=== PATIENT | female | born 1995 | race Caucasian/White ===

== ENCOUNTER 2018-06-01 06:24 | Inpatient (IN) ==
[2018-06-01] MEDS ORDERED: ONDANSETRON HCL/PF 2 MG/ML VIAL IV PRN ×2 (07:36→08:23)
[2018-06-01] MEDS ORDERED: OXYTOCIN/DEXTROSE 5%-WATER 30 UNITS/500 ML BAG IV ONE (07:36)
[2018-06-01] MEDS ORDERED: RINGER'S SOLUTION,LACTATED 1,000 ML IV ONE (07:36)
[2018-06-01] MEDS ORDERED: NALOXONE HCL 1 MG/1 ML SYRG IV PRN (08:23)
[2018-06-01] MEDS ORDERED: BUPIVACAINE HCL/0.9 % NACL/PF 250 ML EP PRN (08:23)
--- NOTE | 2018-06-01 08:26 | ANES ---
Anesthesia Pre Procedure Eval HOME MEDICATIONS Vits96/Iron Fum/Folic [ S] 1 tab PO DAILY #0 tab 04/25/13 [ Last Taken 05/31/18] Ferrous Sulfate 325 mg PO HS 01/26/15 [Last Taken 05/31/18] Allergies/Adverse Reactions: Allergies Allergy/AdvReac Type Severity Reaction Status Date / Time Sulfa (Sulfonamide AdvReac Intermediate Other Verified 06/01/18 07:34 Antibiotics) [Sulfa(Sulfonamide Antibiotics)] - Planned Procedure Planned Procedure: ELECTIVE INDUCTION Medical History (Last Reviewed 06/01/18 @ 08:24 by Jaspal Pemberton CRNA) Anemia affecting Cataracts, bilateral Fibrocystic breast disease History of chlamydia infection Onset Date: ~10/09/12 Surgical History (Last Reviewed 06/01/18 @ 08:24 by Jaspal Pemberton CRNA) No pertinent past surgical history Family History (Last Updated 05/29/18 @ 08:18 by Velma Starks) Father Cardiac anomaly, congenital Mother Alive and well Grandfather Diabetes Grandmother Cancer - Family Anesthesia History Family History:: no untoward family reactions to anesthesia - Airway/Neck/Teeth Within Normal Limits:: Yes Teeth Condition: Intact Mallampatti Score: 2 Thyromental (T-M) distance: > 6 cm Mandibulo Hyoid distance: > 3 cm - Respiratory Respiratory: lungs clear Smoking Status: Never smoker - Cardiovascular Patient History - Cardiac/Respiratory: No pertinent hx Tolerates Activity: Good Heart Sounds: S1 & S2, Regular - Anesthesia Assessment and Plan ASA Class: II, E Anesthesia Type Plan: Epidural Planned difficult intubation/equipment available: No
[2018-06-01] MEDS ORDERED: fentaNYL CITRATE/PF 50 MCG/ML AMPUL IT SCH (08:30)
--- NOTE | 2018-06-01 09:57 | ANES ---
Anesthesia Procedure Note Procedure Note: ANESTHESIA PROCEDURE NOTE Date of Procedure: 06/01/2018 Time of procedure:[]. 07 26 Performed by: Mike Pemberton CRNA Dictating Machine Mechanic: None. Preprocedure diagnosis: Active labor. Post procedure diagnosis: Same. Procedure: Insertion of labor epidural. Indications: The patient is a [22] -year-old [multigravida] female in active labor requesting labor epidural for pain management. Findings: See below. Details of the procedure: The patient was placed in a sitting position. Back was prepped with DuraPrep. Patient was then draped in a sterile fashion. Lidocaine 1% was infiltrated to the skin and subcutaneous tissues at the level of the L3 4 interspace. The epidural space was identified using a 18-gauge Tuohy needle with trvy-ny-wrljeodsmz technique. 20 mcg fentanyl was given intrathecally using a 27 ga. spinal needle. Epidural catheter was inserted without difficulty. Negative test dose was elicited using 5 mL of 1.5% preservative-free lidocaine plus epinephrine 1 200,000. The epidural catheter was then taped and secured in place. EBL: Minimal. Fluids: N/A. Specimen: N/A. Post procedure condition: The patient tolerated the procedure well. No complications were noted. Thank you for this consultation. Bennett CRNA
--- NOTE | 2018-06-01 12:56 | OR ---
Operative Report - Dictated Report Narrative: Spontaneous vaginal delivery of viable male at 1232 on 06/01/2018 with Apgars 9 and 9, weighing 3897 g. Cord clamping delayed approximately 1 minute Placenta delivered complete, intact, with three vessel cord Estimated blood loss: 100 mL Anesthesia: epidural Lacerations: None
[2018-06-01] MEDS ORDERED: GLYCERIN/WITCH HAZEL LEAF 40 APPL BOX TP PRN (12:58)
[2018-06-01] MEDS ORDERED: oxyCODONE HCL/ACETAMINOPHEN 1 TAB TABLET PO PRN (12:58)
[2018-06-01] MEDS ORDERED: HYDROCORTISONE 30 APPL TUBE TP PRN (12:58)
[2018-06-01] MEDS ORDERED: SENNOSIDES 8.6 MG TABLET PO PRN (12:58)
[2018-06-01] MEDS ORDERED: BISACODYL 10 MG SUPP.RECT RC PRN (12:58)
[2018-06-01] MEDS ORDERED: BENZOCAINE/MENTHOL 81 SPRAY CAN TP PRN (12:58)
--- NOTE | 2018-06-01 13:43 | HP ---
Chief Complaint - Chief Complaint Date of Service: 06/01/18 Time of Service: 13:41 Chief Complaint: contractions History of Present Illness: 22 yo at 39 2/7 wks presents to L&D complaining of unbearable contractions. Patient was scheduled for elective induction of labor, but went into labor on her own. RH positive Rubella Immune GBS negative Medical History (Last Reviewed 06/01/18 @ 08:24 by Jaspal Pemberton CRNA) Anemia affecting Cataracts, bilateral Fibrocystic breast disease History of chlamydia infection Onset Date: ~10/09/12 Surgical History: Surgical History (Last Reviewed 06/01/18 @ 08:24 by Jaspal Pemberton CRNA) No pertinent past surgical history Family History: Family History (Last Updated 05/29/18 @ 08:18 by Velma Starks) Father Cardiac anomaly, congenital Mother Alive and well Grandfather Diabetes Grandmother Cancer Social History: Preferred Language Yi Smoking Status Never smoker Review Of Systems (GEN) - Review of Systems Generalized/Overall Review: Present: Chills, Fever EENTM: Present: No Symptoms Reported Respiratory: Present: No Symptoms Reported Cardiac: Present: No Symptoms Reported Abdominal: Present: Abdominal Pain - contractions Genitourinary: Present: No Symptoms Reported Musculoskeletal: Present: No Symptoms Reported Neurological: Present: No Symptoms Reported Skin: Present: No Symptoms Reported Endocrine: Present: No Symptoms Reported Allergies/Adverse Reactions: Allergies Allergy/AdvReac Type Severity Reaction Status Date / Time Sulfa (Sulfonamide AdvReac Intermediate Other Verified 06/01/18 07:34 Antibiotics) [Sulfa(Sulfonamide Antibiotics)] Home Medications: HOME MEDICATIONS Vits96/Iron Fum/Folic [ S] 1 tab PO DAILY #0 tab 04/25/13 [ Last Taken 05/31/18] Ferrous Sulfate 325 mg PO HS 01/26/15 [Last Taken 05/31/18] Exam - Exam Vital Signs: Vital Signs - Last Taken Pulse 74 06/01/18 13:15 Resp 16 06/01/18 13:15 BP 116/62 06/01/18 13:15 Pulse Ox 100 06/01/18 13:15 Constitutional: Present: Alert, Oriented x3, Cooperative, Moderate distress ENT Exam: Present: hearing grossly normal Back Exam: Present: no CVA tenderness Respiratory: Present: lungs clear Cardiovascular/Chest: Present: regular rate, rhythm, edema Abdomen: Present: soft, nondistended, no rebound tenderness, other - gravid /Rectal: Present: Other - cervix 5/70/-1 Extremity: Present: normal range of motion, non-tender, no calf tenderness Skin Exam: Present: normal color, warm/dry Neurologic: Present: normal mood/affect, oriented x 3 Appearance: Present: appropriate appearance Eye contact: Present: cooperative, good eye contact Diagnostic Studies: T 36.2C, P 81, R 16, BP 121/65, 98% Assessment/Plan - Assessment/Plan (1) Labor established Assessment: Routine labor managment. Problem: Acute
[2018-06-01] MEDS: IBUPROFEN 800 MG TABLET PO PRN (14:08)
[2018-06-01] MEDS: oxyCODONE HCL/ACETAMINOPHEN 1 TAB TABLET PO PRN ×2 (14:08→17:38)
[2018-06-01] MEDS: OXYTOCIN/DEXTROSE 5%-WATER 30 UNITS/500 ML BAG IV ONE ×2 (14:09→14:56)
[2018-06-01] MEDS ORDERED: MISOPROSTOL 200 MCG TABLET RC ONE (15:30)
[2018-06-01] MEDS: DOCUSATE SODIUM 100 MG CAPSULE PO SCH (20:29)
[2018-06-01] MEDS: FERROUS SULFATE 325 MG TABLET PO SCH (20:29)
[2018-06-02] MEDS: IBUPROFEN 800 MG TABLET PO PRN ×3 (04:43→21:14)
[2018-06-02] MEDS: oxyCODONE HCL/ACETAMINOPHEN 1 TAB TABLET PO PRN ×2 (04:43→13:28)
[2018-06-02] MEDS: DOCUSATE SODIUM 100 MG CAPSULE PO SCH ×2 (08:18→21:14)
[2018-06-02] MEDS: PRENATAL VITS96/IRON FUM/FOLIC 1 TAB TABLET PO SCH (08:18)
--- NOTE | 2018-06-02 10:26 | PN ---
Subjective - Date and Time Seen Date: 06/02/18 Time: 10:25 Objective - Vitals Vitals: Last Vital Signs Temp 36.1 C 06/02/18 07:39 Pulse 59 L 06/02/18 07:39 Resp 18 06/02/18 07:39 BP 108/62 06/02/18 07:39 Pulse Ox 98 06/02/18 02:25 Patient denies complaints. Breast-feeding. Lochia wnl Abdomen - soft, nontender Uterus - firm, at umbilicus - 1 No calf tenderness Impression: day #1 - s/p spontaneous vaginal delivery. Plan: Continue routine care Cauti Physician Documentation - Urinary Catheter Management Urethral (Brito) Date of Insertion: 06/01/18 Time of Insertion: 09:00 Assessment/Plan - Problems/Diagnosis (1) Labor established Problem: Acute
[2018-06-02] MEDS: FERROUS SULFATE 325 MG TABLET PO SCH (21:14)
[2018-06-03] MEDS: oxyCODONE HCL/ACETAMINOPHEN 1 TAB TABLET PO PRN (01:17)
[2018-06-03 08:00] VITALS: BP 101/59
--- NOTE | 2018-06-03 09:35 | PN ---
Subjective - Date and Time Seen Date: 06/03/18 Time: 09:35 Objective - Vitals Vitals: Last Vital Signs Temp 36.6 C 06/03/18 07:41 Pulse 62 06/03/18 07:41 Resp 18 06/03/18 07:41 BP 101/59 06/03/18 07:41 Pulse Ox 98 06/03/18 07:41 Patient denies complaints. Lochia wnl Abdomen - soft, nontender Uterus - firm, at umbilicus - 2 No calf tenderness Impression: day #2 - s/p spontaneous vaginal delivery. Plan: Routine discharge instructions Cauti Physician Documentation - Urinary Catheter Management Urethral (Brito) Date of Insertion: 06/01/18 Time of Insertion: 09:00 Assessment/Plan - Problems/Diagnosis (1) Labor established Problem: Acute
[2018-06-03] MEDS: PRENATAL VITS96/IRON FUM/FOLIC 1 TAB TABLET PO SCH (09:42)
[2018-06-03] MEDS: DOCUSATE SODIUM 100 MG CAPSULE PO SCH (09:42)
== END 2018-06-03 13:40 | disposition home or self-care (01) | DRG 775 ==
LOC: OB 06:24
PROVIDERS: ADMIT Obstetrics & Gynecology; ATTEND Obstetrics & Gynecology
CPT/HCPCS: 59025